=== PATIENT | male | born 1975 | race Caucasian/White ===

== ENCOUNTER 2024-11-28 21:34 | Emergency (ER) | payer OTHER ==
[~2024-11-28] VITALS: Ht 175.2 cm; Wt 95.3 kg
[2024-11-28 22:16] LABS: BILIRUBIN Negative (Negative); BLOOD Negative (Negative); CLARITY Cloudy (Clear); COLOR Yellow (Yellow); GLUCOSE Negative (Negative); KETONE Negative (Negative); LEUKO ESTERASE Negative (Negative); NITRITE Negative (Negative); PH 5.5 (4.5-8.0); SPECIFIC GRAVITY 1.015 (1.001-1.030); UROBILINOGEN 0.2 E.U./dl (0.0-1.0)
[2024-11-28 22:27] LABS: RBC 0-2 rbc/hpf (0-2); WBC 0-2 wbc/hpf (0-5)
[2024-11-28] MEDS ORDERED: CIPRO500 MG PO (23:49)
[2024-11-28] MEDS ORDERED: METRONIDAZOLE500 M1 PO (23:49)
[2024-11-28] MEDS ORDERED: metroNIDAZOLE 500 MG TAB PO ONE (23:50)
[2024-11-28] MEDS ORDERED: Ciprofloxacin Hydrochloride 500 MG TAB PO ONE (23:50)
[2024-11-28] MEDS ORDERED: Ketorolac Tromethamine 60 MG/2 ML VIAL IM ONE (23:50)
== END 2024-11-28 23:53 | disposition home or self-care (01) ==
LOC: ED 21:34
PROVIDERS: Internal Medicine
DX: K57.32 Diverticulitis of large intestine without perforation or abscess without bleeding (principal); R30.9 Painful micturition, unspecified; Z88.0 Allergy status to penicillin